=== PATIENT | female | born 1950 | race Caucasian/White ===

== ENCOUNTER → 2018-04-12 11:15 | Outpatient (CLI) | payer MEDICARE, SELFPAY ==
--- NOTE | 2018-04-12 11:18 | MRI_ITS ---
STUDY: MRI THORACIC SPINE WITHOUT CONTRAST REASON FOR EXAM: Female, 67 years old. Chronic thoracic pain to right side. TECHNIQUE: Standardized fat and water weighted pulse sequences were obtained in the sagittal and axial planes. COMPARISON: None. FINDINGS: Normal kyphosis of the thoracic spine. There is no substantial scoliosis. T1-2, T2-3, T3-4, T4-5, T5-6, T6-7, T7-8, T8-9, T9-10, T10-11, T11-12: Mild anterior wedging of the superior endplates of T5, T6, T9 and T11 vertebral bodies. There are presumably from remote injury. No thoracic extruded disc fragments. Normal central canal and bilateral intervertebral neural foramina. Normal visualized thoracic cord. Normal conus medullaris that terminates at the mid L1 vertebral body level. The soft tissue structures are unremarkable. MRI/Spine Thoracic (Routine) IMPRESSION: 1. No MRI evidence of thoracic extruded disc fragment or spinal stenosis. 2. Minimal anterior wedging of the superior endplates of T5, T6, T9 and T11 vertebral bodies are presumably from remote injury. 3. Normal thoracic spinal cord. Electronically Signed: Willie Parkinson MD at 15:02 EST , Service support ,
--- OUTSIDE RECORDS SUMMARY | 2018-06-05 17:10 | XMS RPT_ITS ---
:[address] [facility] Care Team Providers Name Role Phone Dr. Gracia Galaviz Admitting Unavailable Dr. Gracia Galaviz Attending Unavailable [place], Coretta October Attending Unavailable [place], Coretta October Admitting Unavailable Long[place]orf, Kamilah A Primary Care Unavailable [place], Coretta October Admitting Unavailable [place], Coretta October Attending Unavailable [place]orf, Kamilah A Primary Care Unavailable [place], Coretta October Attending Unavailable [place]orf, Kamilah A Primary Care Unavailable [place], Coretta October Admitting Unavailable [place], Coretta October Attending Unavailable [place], Coretta October Primary Care Unavailable [place], Coretta October Admitting Unavailable [place], Coretta October Attending Unavailable [place], Coretta October Primary Care Unavailable [place], Coretta October Admitting Unavailable [place], Coretta October Attending Unavailable [place], Coretta October Primary Care Unavailable Gracia Galaviz Admitting Unavailable Gracia Galaviz Attending Unavailable [place], Coretta October Referring Unavailable [place], Coretta October Primary Care Unavailable Ambreen Paredes Attending Unavailable Ambreen Paredes Referring Unavailable [place], Coretta October Primary Care Unavailable Gracia Galaviz Admitting Unavailable Gracia Galaviz Attending Unavailable [place], Coretta October Primary Care Unavailable Longsdorf, Kamilah A Attending Unavailable [place], Coretta October Primary Care Unavailable Longsdorf, Kamilah A Admitting Unavailable [place], Coretta October Primary Care Unavailable Durga Hinson Admitting Unavailable JoyaDurga Attending Unavailable Nicole, Kamilah A Admitting Unavailable NicoleKamilah A Attending Unavailable [place], Coretta October Primary Care Unavailable [place], Coretta October Attending Unavailable [place], Coretta October Primary Care Unavailable [place], Coretta October Admitting Unavailable [place], Coretta October Primary Care Unavailable [place], Coretta October Attending Unavailable [place], Coretta October Primary Care Unavailable [place], Coretta October Admitting Unavailable [place], Coretta MANAGER CUSTOM-C Attending Unavailable [place], Coretta MANAGER CUSTOM-C Referring Unavailable [place], Coretta MANAGER CUSTOM-C Primary Care Unavailable PROBLEMS PROBLEMS No Problem Records FoundPROCEDURES PROCEDURES No Procedure Records FoundRESULTS RESULTS SPINE THORACIC Observed: 04/12/2018 Status: F Source: [place] (ROUTINE) 11:18 AM [facility] REPOSITORY [facility] Imaging Services [address] [place] [id number] Spine Thoracic (Routine) MR#: [id number] Acct: [id number] Name: JOHNSON LAN Rep #: [id number] : 1950 F 67 From: Willie Parkinson MD PCP: OVIDIO Saucedo Status: REG CLI Study: Spine Thoracic (Routine) Date of Exam: 04/12/18 Exam# [id number] Ordering Dr: Coretta James STUDY: MRI THORACIC SPINE WITHOUT CONTRAST REASON FOR EXAM: Female, 67 years old. Chronic thoracic pain to right side. TECHNIQUE: Standardized fat and water weighted pulse sequences were obtained in the sagittal and axial planes. COMPARISON: None. FINDINGS: Normal kyphosis of the thoracic spine. There is no substantial scoliosis. T1-2, T2-3, T3-4, T4-5, T5-6, T6-7, T7-8, T8-9, T9-10, T10- 11, T11-12: Mild anterior wedging of the superior endplates of T5, T6, T9 and T11 vertebral bodies. There are presumably from remote injury. No thoracic extruded disc fragments. Normal central canal and bilateral intervertebral neural foramina. Normal visualized thoracic cord. Normal conus medullaris that terminates at the mid L1 vertebral body level. The soft tissue structures are unremarkable. MRI/Spine Thoracic (Routine) IMPRESSION: 1. No MRI evidence of thoracic extruded disc fragment or spinal stenosis. 2. Minimal anterior wedging of the superior endplates of T5, T6, T9 and T11 vertebral bodies are presumably from remote injury. 3. Normal thoracic spinal cord. Electronically Signed: Willie Parkinson MD at 15:02 EST , Service support , CC: OVIDIO James Metabolic Specialist: Signed US BREAST UNILATERAL Observed: 10/27/2017 Status: F Source: [facility] RT COMPLETE 8:32 AM [facility] REPOSITORY Exam Date/Time: 10/27/2017 09:07 EDT Reason for Exam: RUQ ABD PAIN RIGHT BREAST PAIN 06/09/17;Breast pain Report STUDY: US Breast Unilateral Rt Complete; 10/27/2017 9:07 am ACCESSION NUMBER(S): [id number] ORDERING CLINICIAN: Kamilah Rivera INDICATION: Breast pain. COMPARISON: None. FINDINGS: The entire breast was examined by ultrasound. No solid mass lesion is seen. There is no abnormal shadowing present. A cyst is present, at the 9 o'clock position 8 cm from the nipple, measuring 5 x 3 x 3 mm. No ductal dilatation is seen. The parenchyma is moderately echodense. IMPRESSION: No solid mass lesion. Cyst at the 9 o'clock position 8 cm from the nipple. BI-RADS CATEGORY: Category: 2 - Benign Finding. Recommendation: Normal Interval Follow-up, Over Age 40. Recall Interval: 12 Months. Breast Density: Heterogeneous. For any future breast imaging appointments, please call [phone] ([phone]). FINAL REPORT Dictated: 10/27/2017 10:51 am Pablo Estrada MD Signed (Electronic Signature): 10/27/2017 10:51 am Signed by: Pablo Estrada MD Technologist: ROBBY Assessment: BI-RADS Category 2-Benign finding Recommendation: Normal interval follow-up US ABDOMEN, LIMITED Observed: 10/27/2017 Status: F Source: [facility] 8:06 AM [facility] REPOSITORY Exam Date/Time: 10/27/2017 09:07 EDT Reason for Exam: RUQ ABD PAIN RIGHT BREAST PAIN ATTN:RUQ;RUQ Pain Report STUDY: US Abdomen, Limited; 10/27/2017 9:07 am INDICATION: 67 y/o F with RUQ Pain. COMPARISON: None. ACCESSION NUMBER(S): [id number] ORDERING CLINICIAN: Kamilah Rivera TECHNIQUE: Routine ultrasound of the right upper quadrant was performed. Static images were obtained for remote interpretation. FINDINGS: LIVER: Normal size. There is increased liver echogenicity. This, is most likely due to fatty liver. Coexistent fibrotic or inflammatory changes are not excluded. No gross masses within the limits of the study (particularly from attenuation of the posterior liver). BILE DUCTS: No intrahepatic or extrahepatic bile duct dilatation. Extrahepatic bile duct = 4 mm. GALLBLADDER: Normal. No stones, pericholecystic fluid, wall thickening, or localized tenderness. PANCREAS: Normal head and body. The pancreatic tail is obscured by bowel gas. RIGHT KIDNEY: Normal size, no hydronephrosis. A cyst is noted in the right kidney, which measures 1.8 x 1.08 x 1.5 cm. PERITONEUM: No upper abdominal ascites. IMPRESSION: Fatty infiltration of the liver. No evidence for cholelithiasis. Exam Date/Time: 10/27/2017 09:07 EDT Report Right renal cyst. FINAL REPORT Dictated: 10/27/2017 9:38 am Maday Bolden MD Signed (Electronic Signature): 10/27/2017 9:38 am Signed by: Maday Bolden MD Technologist: ROBBY CBC W/ AUTO DIFF Collected: 10/02/2017 Status: F Source: [facility] 11:15 PM [facility] REPOSITORY TYPE CODE TESTS RESULT OUT OF RANGE REFERENCE UNITS LAB [id number](L 3.6-11.0 E3/mcL OINC) Normal WBC 5.9 LAB [id number](L 3.90-5.40 E6/mcL OINC) Normal RBC 4.28 LAB [id number](L 12.0-16.0 G/DL OINC) Normal Hgb 12.8 LAB [id number](L 36.0-48.0 % OINC) Normal Hct 38.0 LAB [id number](L 11.5-14.5 % OINC) Normal RDW 14.3 LAB [id number](L 27.0-31.0 pg OINC) Normal MCH 30.0 LAB [id number](L 33.0-37.0 G/DL OINC) Normal MCHC 33.8 LAB [id number](L 78.0-100.0 fL OINC) Normal MCV 88.8 LAB [id number](L 7.4-11.0 fL OINC) Normal MPV 8.9 LAB [id number](L 130-400 E3/mcL OINC) Normal Platelet 153 Performed By: #### [id number] #### [place] [address] AUTO DIFF Collected: 10/02/2017 Status: F Source: [facility] 11:15 PM [facility] REPOSITORY Order Comment: Order Added by Discern Expert. TYPE CODE TESTS RESULT OUT OF RANGE REFERENCE UNITS LAB [id number](L 37.0-75.0 % OINC) Normal Neutro Auto 62.9 LAB [id number](L 20.0-55.0 % OINC) Normal Lymph Auto 25.9 LAB [id number](L 0.0-10.0 % OINC) Normal [place] Auto 6.7 LAB 31436613(L 0.0-11.0 % OINC) Normal Eos Auto 3.5 LAB [id number](L 0.0-2.0 % OINC) Normal Basophil Auto 1.0 LAB [id number](L 1.4-6.5 E3/mcL OINC) Normal Neutro 3.7 Absolute LAB [id number](L 1.2-3.4 E3/mcL OINC) Normal Lymph Absolute 1.5 LAB [id number](L 0.0-0.7 E3/mcL OINC) Normal [place] Absolute 0.4 LAB 01827601(L 0.0-0.7 E3/mcL OINC) Normal Eos Absolute 0.2 LAB [id number](L 0.0-0.2 E3/mcL OINC) Normal Basophil 0.1 Absolute Performed By: #### [id number] #### ANGIE [employer] [address] [place] [address] PT Collected: 10/02/2017 Status: F Source: [facility] 11:15 [facility] REPOSITORY TYPE CODE TESTS RESULT OUT OF RANGE REFERENCE UNITS LAB [id number](LO 1.0-1.2 INC) Normal INR 1.0 Result Comment: INR Recommended Therapeuptic Ranges: Prophylaxis/treatment of DVT and PE?2.0-3.0 Prevention of systemic embolism?.2.0-3.0 Mechanical prosthetic values?2.5-3.5 CRITICAL VALUES?.>4.0 LAB [id number](LOINC) 11.6-14.6 second(s) Normal 12.9 PT Performed By: #### [id number] #### ANGIE [facility] [employer] [address] [place] [address] PTT Collected: 10/02/2017 Status: F Source: [facility] 11:15 [facility] REPOSITORY TYPE CODE TESTS RESULT OUT OF RANGE REFERENCE UNITS LAB [id number](LO 23.2-36.4 second(s) INC) Normal PTT 25.6 Performed By: #### [id number] #### ANGIE [facility] [employer] [address] [place] [address] PTT CONTROL RATIO Collected: 10/02/2017 Status: F Source: [facility] 11:15 [facility] REPOSITORY Order Comment: Order added by Discern Expert. TYPE CODE TESTS RESULT OUT OF RANGE REFERENCE UNITS LAB [id number](LO 0.8-1.2 ratio INC) Normal PTT Ratio 0.9 Performed By: #### [id number] #### ANGIE [facility] [employer] [address] [place] [address] TROPONIN-I Collected: 10/02/2017 Status: F Source: [facility] 11:15 PM [facility] REPOSITORY TYPE CODE TESTS RESULT OUT OF RANGE REFERENCE UNITS LAB [id number](LO .00-.03 ng/mL INC) Normal <.01 Troponin-I Performed By: #### [id number] #### ANGIE [place] [id number] [facility] Collected: 10/02/2017 Status: F Source: [facility] 11:15 PM [facility] REPOSITORY TYPE CODE TESTS RESULT OUT OF RANGE REFERENCE UNITS LAB [id number](L 70-99 mg/dL OINC) High Glucose Lvl 167 LAB [id number](L 8.4-10.2 mg/dL OINC) Calcium Normal Lvl 8.9 LAB [id number](L 136-145 mEq/L OINC) Low Sodium Lvl 135 LAB [id number](L 3.5-5.1 mEq/L OINC) Normal Potassium Lvl 3.6 LAB [id number](L 98-107 mEq/L OINC) Chloride Normal 104 LAB [id number](L 24.0-30.0 mEq/L OINC) Low CO2 22.3 LAB [id number](L 7-18 mg/dL OINC) BUN Normal 13 LAB [id number](LO 0.6-1.3 mg/dL INC) Normal Creatinine 0.8 LAB 30603101(L 42-121 Int._Unit/ OINC) L Alk Phos Normal 68 LAB [id number](L 0.2-1.0 mg/dL OINC) Bili Normal Total 0.4 LAB [id number](L 3.2-5.0 G/DL OINC) Albumin Normal Lvl 4.1 LAB [id number](L 6.4-8.3 G/DL OINC) Total Normal Protein 7.0 LAB [id number](L 10-40 Int._Unit/ OINC) High L ALT 50 LAB [id number](L 10-42 Int._Unit/ OINC) High L AST 52 LAB [id number](L 5.4-30.0 ratio OINC) Normal BUN/Creat Ratio 16.2 LAB [id number](L 2.0-4.0 G/DL OINC) Globulin Normal 2.9 LAB 61471639(L 1.1-1.9 ratio OINC) A/G Normal Ratio 1.4 Performed By: #### [id number] #### ANGIE [employer] [address] [place] [address] EGFR Collected: 10/02/2017 Status: F Source: [place] 11:15 PM [facility] REPOSITORY Order Comment: Order added by Discern Expert. TYPE CODE TESTS RESULT OUT OF RANGE REFERENCE UNITS LAB [id number](LO mL/min/1.73 INC) m2 Normal eGFR >60 LAB 66022648(LO mL/min/1.73 INC) m2 Normal eGFR AA >60 Performed By: #### [id number] #### ANGIE [facility] [address] [place] [address] CLINIC NOTE - HEME Observed: 08/04/2017 Status: COMPLETED Source: [facility] 8:36 AM [facility] Patient Visit Information: Visit Type: Consult History of Present Illness: Chief Complaint: iron deficiency anemia Interval History: Johnson Lan is a 67 y.o. who presents with iron deficiency anemia. She is status post gastric bypass surgery 8 years prior. She reports a loss of 70 lbs but has gained back 20 lbs. She reports herself as an emotional eater. She reports stuffing her stomach and having subsequent pain daily. She has been lost to follow-up with regards to her gastric bypass surgery. She takes 1 over the counter iron tablet daily. Labs dated 07/15 2017 show wbc 5.1, hgb 12.6, mcv 89.2, platelets 159. Iron 47, transferrin 321, TIBC 449 and iron saturation low at 10. On 02/13 2017 labs showed wbc 5.7, hgb 12.5, mcv 86.1, platelets 171, iron 44, transferrin 325, TIBC 455 and low iron saturation at 10. Review of Systems: ? Constitutional NEGATIVE: Fever, Chills, Anorexia, Weight Loss, Malaise Comments fatigue ? Eyes NEGATIVE: Blurry Vision, Drainage, Diploplia, Redness, Vision Loss/ Change ? ENMT NEGATIVE: Nasal Discharge, Nasal Congestion, Ear Pain, Mouth Pain, Throat Pain ? Respiratory POSITIVE: Wheezing NEGATIVE: Dry Cough, Productive Cough, Hemoptysis, Shortness of Breath ? Cardiology NEGATIVE: Chest Pain, Dyspnea on Exertion, Orthopnea, Palpitations, Syncope ? Gastrointestinal NEGATIVE: Abdominal Pain, Constipation, Diarrhea, Nausea, Vomiting ? Genitourinary NEGATIVE: Discharge, Dysuria, Flank Pain, Frequency, Hematuria ? Musculoskeletal POSITIVE: Pain, Stiffness NEGATIVE: Decreased ROM, Swelling, Weakness ? Neurological NEGATIVE: Dizziness, Confusion, Headache, Seizures, Syncope ? Psychiatric POSITIVE: Mood Changes, Anxiety NEGATIVE: Hallucinations, Sleep Changes, Suicidal Ideas ? Skin NEGATIVE: Mass, Pain, Pruritus, Rash, Ulcer ? Endocrine NEGATIVE: Heat Intolerance, Cold Intolerance, Sweat, Polyuria, Thirst ? Hematologic/Lymph POSITIVE: Bruising NEGATIVE: Anemia, Easy Bleeding, Night Sweats, Petechiae ? Allergic/Immunologic NEGATIVE: Anaphylaxis, Itchy/ Teary Eyes, Itching, Sneezing, Swelling ? Breast NEGATIVE: Pain, Mass, Discharge, Nipple Itching, Gynecomastia Allergies and Intolerances: Allergies: penicillin: Drug, Rash, Active Outpatient Medication Profile: * Patient Currently Takes Medications as of 04-Aug-2017 07:57 documented in Structured Notes celecoxib 100 mg oral capsule: Last Dose Taken: , 1 cap(s) orally 2 times a day cloNIDine 0.2 mg/12 hr oral tablet, extended release: Last Dose Taken: , 2 tab(s) orally once a day (in the evening) pantoprazole 40 mg oral delayed release tablet: Last Dose Taken: , 1 tab(s) orally once a day amlodipine-valsartan 5 mg-160 mg oral tablet: Last Dose Taken: , 1 tab(s) orally once a day venlafaxine 75 mg oral capsule, extended release: 1 cap(s) orally once a day Slow Release Iron (as elemental iron) 45 mg oral tablet, extended release: 1 tab(s) orally once a day levalbuterol 45 mcg/inh inhalation aerosol: Last Dose Taken: , 2 puff(s) inhaled every 4 hours, As Needed Medical History: Skin cancer, basal cell: Status: Active Wheezing: Status: Active Depression: Status: Active GERD (gastroesophageal reflux disease): Status: Active Hypertension: Status: Active Fibromyalgia: Status: Active Iron deficiency anemia: Status: Active Surg History: Status post total knee replacement: Status: Active Gastric bypass status for obesity: Status: Active Family History: Cerebral hemorrhage: Status: Active, Relationship to Patient: Father (Age at Diagnosis: Age Unknown) Congestive heart failure: Status: Active, Relationship to Patient: Mother (Age at Diagnosis: Age Unknown) Family History: Congestive heart failure (Mother Age Unknown) Cerebral hemorrhage (Father Age Unknown) Social History: Smoking Status: never smoker Tobacco Use: denies Alcohol Use: occasionally, 3 drinks / week Drug Use: denies Vitals and Measurements: Vitals: Temp: 36.6 HR: 83 RR: 20 BP: 119/77 SPO2%: 95 Measurements: HT(cm): 165 WT(kg): 103.6 BSA: 2.17 BMI: 38 Physical Exam: Constitutional: Well developed, awake/alert/oriented x3, no distress Eyes: PERRL, EOMI, clear sclera ENMT: mucous membranes moist, no apparent injury, no lesions seen Head/Neck: Neck supple, no apparent injury Respiratory/Thorax: Patent airways, CTAB, normal breath sounds with good chest expansion, thorax symmetric Cardiovascular: Regular, rate and rhythm Gastrointestinal: Nondistended, soft, non-tender, no rebound tenderness or guarding, no masses palpable, no organomegaly Musculoskeletal: ROM intact, normal strength Extremities: normal extremities, no edema Neurological: alert and oriented x3, intact motor, normal strength Lymphatic: No significant lymphadenopathy Psychological: Appropriate mood and behavior Skin: Warm and dry Assessment and Plan: Assessment and Plan: Assessment: Johnson Lan is a 67 y.o. who presents with concern for iron deficiency anemia. She is status post gastric bypass surgery 8 years prior. I did explain the concern for malabsorption of iron. She reports taking over the counter iron supplement. Transferrin saturation is low. I did offer infusional iron therapy with her history of gastric bypass. At this time she refuses. She would like to increase the dosing of her current iron regimen. Plan: Return to clinic in 4 weeks with cbc/diff, iron, TIBC and ferritin prior to visit. Continue oral iron twice daily. Patient Instructions: Instructions: Return to clinic in 4 weeks with cbc/diff, iron, TIBC and ferritin prior to visit. Continue oral iron twice daily. Note Recipients: C[facility] [phone] Select Yes when ready to send to Provider(s) Listed Above: Note sent to providers named above Electronic Signatures: Gracia Galaviz) (Signed 07-Aug-2017 08:34) Authored: Patient Visit Information, History of Present Illness, Review of Systems, Allergies and Outpatient Medication Profile, Problem List, Social History, Performance Assessments, Vitals and Measurements, Physical Exam, Assessment and Plan, Patient Instructions, To Send Document via Auto Fax Last Updated: 07-Aug-2017 08:34 by Gracia Galaviz) CLINIC NOTE - Observed: 08/04/2017 Status: UNK Source: [facility] 7:44 AM [facility] Patient Visit Information: ? Visit Type New Visit ? Patient States Here to see Dr Galaviz for Iron Deficiency ? Source of Information patient Admission Information: ? Admission Since Last Visit No Vital Signs: ? Temp (degrees C) 36.6 degrees C ? Temperature oral ? Heart Rate (beats/min) 83 beats per minute ? Respiration (breaths/min) 20 breath per minute ? BP Systolic (mm Hg) 119 mmHg ? BP Diastolic (mm Hg) 77 mmHg ? BP Mean (mm Hg) 91 mmHg ? Height in cm 165 centimeter(s) ? Height Method measured ? Height standing ? Weight in kg 103.6 kilogram(s) ? Weight Method standing scale ? BMI (kg/m2) 38 ? BSA (m2) 2.17 ? SpO2 (%) 95 % Pain Screening: ? Patient States Pain no (0) ? 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 Patient has declined Allergies: penicillin: Drug, Rash, Active Outpatient Medication Profile: * Patient Currently Takes Medications as of 04-Aug-2017 07:57 documented in Structured Notes celecoxib 100 mg oral capsule: Last Dose Taken: , 1 cap(s) orally 2 times a day cloNIDine 0.2 mg/12 hr oral tablet, extended release: Last Dose Taken: , 2 tab(s) orally once a day (in the evening) pantoprazole 40 mg oral delayed release tablet: Last Dose Taken: , 1 tab(s) orally once a day amlodipine-valsartan 5 mg-160 mg oral tablet: Last Dose Taken: , 1 tab(s) orally once a day venlafaxine 75 mg oral capsule, extended release: 1 cap(s) orally once a day Slow Release Iron (as elemental iron) 45 mg oral tablet, extended release: 1 tab(s) orally once a day levalbuterol 45 mcg/inh inhalation aerosol: Last Dose Taken: , 2 puff(s) inhaled every 4 hours, As Needed Each Visit: Have you fallen in the last 6 months? no Do you have a fear of falling? no Is the patient using an assistive device no Do you feel you need assistance? no Are there cultural/spiritual/scientologist practices/values/needs important for us to know during your visit today no Annual: Declaration of Mental Health Treatment no Healthcare POA no Are you or have you been threatened or abused physically,emotionally or sexually abused by anyone no Do you feel UNSAFE going back to the place you are living no During the past two weeks, have you felt down, depressed or hopeless no Have you had thoughts of harming anyone else no Have you had thoughts of harming yourself no During the past two weeks, have you felt little interest or pleasure doing things no How many times in the past year have you had 4 or more drinks within 24 hours 0 How many times in past year have you used recreational or prescription drugs for non-medical reasons 0 In the past month, was there any day when you or anyone in your family went hungry because you didn't have enough food no Primary Language Polish Living Will no Living Will Forms declines more information Healthcare POA Forms declined more information Mental Health Forms declines more information Electronic Signatures: Em Mg (ASST HEAD N MGR) (Signed 04-Aug-2017 07:58) Authored: Patient Visit Information, Vital Signs, Chocolate Production Machine Operator, Allergies, Outpatient Medication Profile, Adult Admission Risk Screen Last Updated: 04-Aug-2017 07:58 by Em Mg (ASST HEAD N MGR) CBC W/ AUTO DIFF Collected: 07/15/2017 Status: F Source: [facility] 10:41 AM [facility] REPOSITORY TYPE CODE TESTS RESULT OUT OF RANGE REFERENCE UNITS LAB [id number](L 3.6-11.0 E3/mcL OINC) Normal WBC 5.1 LAB [id number](L 3.90-5.40 E6/mcL OINC) Normal RBC 4.24 LAB [id number](L 12.0-16.0 G/DL OINC) Normal Hgb 12.6 LAB [id number](L 36.0-48.0 % OINC) Normal Hct 37.8 LAB [id number](L 11.5-14.5 % OINC) Normal RDW 13.9 LAB [id number](L 27.0-31.0 pg OINC) Normal MCH 29.8 LAB 46624983(L 33.0-37.0 G/DL OINC) Normal MCHC 33.4 LAB [id number](L 78.0-100.0 fL OINC) Normal MCV 89.2 LAB 01630625(L 7.4-11.0 fL OINC) Normal MPV 8.8 LAB [id number](L 130-400 E3/mcL OINC) Normal Platelet 159 Performed By: #### [id number] #### ANGIE [facility] [place] [address] AUTO DIFF Collected: 07/15/2017 Status: F Source: [facility] 10:41 AM [facility] REPOSITORY Order Comment: Order Added by Discern Expert. TYPE CODE TESTS RESULT OUT OF RANGE REFERENCE UNITS LAB [id number](L 37.0-75.0 % OINC) Normal Neutro Auto 59.0 LAB [id number](L 20.0-55.0 % OINC) Normal Lymph Auto 26.7 LAB 75016019(L 0.0-10.0 % OINC) Normal [place] Auto 9.4 LAB 87109444(L 0.0-11.0 % OINC) Normal Eos Auto 4.1 LAB [id number](L 0.0-2.0 % OINC) Normal Basophil Auto 0.8 LAB 65679861(L 1.4-6.5 E3/mcL OINC) Normal Neutro 3.0 Absolute LAB 64162937(L 1.2-3.4 E3/mcL OINC) Normal Lymph Absolute 1.4 LAB 29573507(L 0.0-0.7 E3/mcL OINC) Normal [place] Absolute 0.5 LAB 68788646(L 0.0-0.7 E3/mcL OINC) Normal Eos Absolute 0.2 LAB 36075014(L 0.0-0.2 E3/mcL OINC) Normal Basophil 0.0 Absolute Performed By: #### [id number] #### ANGIE [facility] [place] [address] IRON TESTS Collected: 07/15/2017 Status: F Source: [facility] 10:41 AM [facility] REPOSITORY TYPE CODE TESTS RESULT OUT OF RANGE REFERENCE UNITS LAB [id number](L 35-155 microgram/ OINC) dL Iron Normal 47 LAB [id number](L 180-382 mg/dL OINC) Transferrin Normal 321 LAB [id number](L 11-46 OINC) Low Iron Sat 10 LAB [id number](L >=250 microgram/ OINC) dL TIBC Normal 449 Performed By: #### [id number] #### ANGIE [employer] [facility] [place] [address] SED RATE AUTOMATED Collected: 07/15/2017 Status: F Source: [facility] 10:41 AM [facility] REPOSITORY TYPE CODE TESTS RESULT OUT OF RANGE REFERENCE UNITS LAB [id number](L mm/hr OINC) Sed Normal Rate Automated 11 Result Comment: AGE-SPECIFIC REFERENCE RANGES FOR SEDIMENTATION RATE AUTOMATED REFERENCE RANGE - MM/HR AGE MEN WOMEN 0-2 0-2 - PUBERTY 3-13 3-13 PUBERTY - 50 YRS 0-15 0-20 > 50 YRS 0-20 0-30 Performed By: #### [id number] #### ANGIE Hematology Manual Subsection [facility] [place] [address] FERRITIN Collected: 07/15/2017 Status: F Source: [facility] 10:41 AM [facility] TYPE CODE TESTS RESULT OUT OF REFERENCE UNITS RANGE LAB [id number](LO 11.0-306.8 ng/mL INC) Low Ferritin Lvl 7.2 Performed By: #### [id number] #### ANGIE [employer] [address] [place] [address] BD BONE DENSITY DEXA Observed: 06/09/2017 Status: F Source: [facility] 10:44 AM [facility] REPOSITORY Exam Date/Time: 06/09/2017 10:54 EST Reason for Exam: SCREENING MENOPAUSAL;Menopausal Report BD Bone Density DEXA, 06/09/2017 10:44 AM CLINICAL STATEMENT: Postmenopausal screening. TECHNIQUE: DEXA scan was performed of the lumbar spine and left hip. FINDINGS: The bone mineral density of the lumbar spine from levels L1-L4 is 1.119 g/sq cm corresponding to a T-score of 0.7. This is consistent with normal bone mineral density by WHO criteria. The bone mineral density of the total left hip is 0.896 g/sq cm corresponding to a T-score of -0.4. This is consistent with normal bone mineral density by WHO criteria. The bone mineral density of the left femoral neck is 0.731 g/sq cm corresponding to a T-score of -1.1. This is consistent with osteopenia by WHO criteria. IMPRESSION: Osteopenia by WHO criteria. Ten-year fracture risk as determined by WHO fracture assessment tool is 13% for major osteoporotic fracture and 1.2% for hip fracture. FINAL REPORT Dictated: 06/09/2017 5:47 pm Guille Ray MD Signed (Electronic Signature): 06/09/2017 5:47 pm Signed by: Guille Ray MD Technologist: OLU TSAI MAMM SCREEN W/CAD Observed: 06/09/2017 Status: F Source: [facility] IF PERFORMED BILAT 10:32 AM [facility] REPOSITORY Exam Date/Time: 06/09/2017 10:44 EST Reason for Exam: SCREENING MENOPAUSAL;Screening Report MA Mamm Screen w/CAD if performed bilat, 06/09/2017 10:32 AM. CLINICAL STATEMENT: Screening. COMPARISON: 04/16/2016, 01/22/2015. TECHNIQUE: Standard MLO and CC projections of the right and left breast were obtained on a digital system. Computer-assisted detection was used. FINDINGS: Breast tissue composition: Heterogeneously dense, which may obscure small masses. A scar marker is noted in the left breast. Vascular and other benign-appearing calcifications are present, similar to prior. No dominant mass, suspicious microcalcifications, or architectural distortion. CONCLUSION: BI-RADS 2 - Benign, no evidence of malignancy. Normal interval followup is recommended in 12 months. OVERALL ASSESSMENT- BENIGN A letter of notification will be sent to the patient regarding the results. Assessment / Recommendation: 2-1 Normal interval follow-up Breast density: Heterogeneously Dense Recall interval: 012 months FINAL REPORT Dictated: 06/09/2017 5:47 pm Guille Ray MD Signed (Electronic Signature): 06/09/2017 5:47 pm Signed by: Guille Ray MD Technologist: ROSALIND Assessment: BI-RADS Category 2-Benign finding Recommendation: Normal interval follow-up IG PAP [id number] Collected: 05/26/2017 Status: F Source: [facility] 12:53 PM [facility] REPOSITORY TYPE CODE TESTS RESULT OUT OF RANGE REFERENCE UNITS LAB [id number]( INC) Normal See Ref Lab Diagnosis: Report Performed By: #### [id number] #### [place] [address] PATHOLOGY ([facility]) Observed: 05/25/2017 Status: F Source: [facility] 12:00 AM REPOSITORY FINAL GYNECOLOGIC CYTOLOGY REPORT [id number] SPECIMEN ADEQUACY Unsatisfactory for Evaluation. Specimen is processed and examined, but unsatisfactory for evaluation of epithelial abnormality due to: Sample is scanty/obscurred by lubricant GENERAL CATEGORIZATION Unsatisfactory for evaluation. COMMENT Knifeman screening was performed at [facility], [address] [address] High Risk HPV was ordered and performed at [facility] Laboratory. Results are reported below in this report. A negative result is a normal result. A positive result is an abnormal result. HPV HIGH RISK NEGATIVE: The results of this test indicate the patient's specimen is NEGATIVE for the following high-risk HPV types: 16/18/31/33/35/39/45/51/52/56/58/59/66/68. RELATED LABORATORY RESULTS Ordered by: [email or web address] Ord Date: 05/25/2017 Ord Time: 20:28 Test Collected Result Abnormal Range Units Specimen Name D&T Type HPV Negative NA MSC RNA, 8 High Risk The HPV test detects E6/E7 viral messenger RNA (mRNA) high- risk HPV genotypes 16,18,31,33,35,39,45,51,55,58,59,66, and 68 which are associated with cervical cancer and its precursor lesions. However, cross-reactions with other genotypes may occur. Results should be correlated with cytologic and histologic findings. Sensitivity may be affected by cellularity of specimen. CLINICAL HISTORY Comment: No LMP provided. SPECIMEN (A) SCREENING CERVICAL/ENDOCERVICAL LIQUID-BASED PAP Performed at [facility], [address] [place] [address] Screened by: CRIS VARELA [employer]her Signed Out by: VOLODYMYR CROWE [employer]her Reported: 06/02/2017 Performed By: #### RUNNING RIGGER #### [facility] [address] [place] [address] ALLERGIES ALLERGIES DATE TYPE / CODE NAME / CODE REACTION SEVERITY SOURCE 11/15/2015 Drug venlafaxine Nausea Unknown Audrey Allergy/416 HCl/[id number](RXN Community 392487([facility]) [facility] ED CT) Repository 11/15/2015 Drug Penicillins/Z90239 Rash Unknown [place] Allergy/416 0476(RXNORM) Community 467739([facility] ED CT) Repository Drug/577118 Milk to drink Nondenominational 003([facility] CT) System Repository Drug/829928 penicillin G Rash Nondenominational 003([facility] benzathine [facility] CT) System Repository Drug/082201 Milk Products gi upset Nondenominational 003([facility] CT) System Repository Food/748988 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 [facility] CT) System Repository Drug/683728 Effexor NAUSEA/VOMITING Nondenominational 003([facility] CT) System Repository ENCOUNTERS ENCOUNTERS ADMIT/DISCHARGE ACCOUNT NUMBER ADMITTING ENCOUNTER LOCATION SOURCE CLASS 04/12/2018 [id number] [facility] ding:MRI Repository 04/06/2018/04/06/[id number] ding:[place] Repository nt MedicRoom: Room 2 02/23/2018 [id number] [facility] ding:[place] Repository nt Medic 12/02/2017/12/03/[id number] ding:[place] Repository nt MedicRoom: Room 2 10/27/2017/10/28/[id number] ding:[facility] Health System Repository 10/27/2017 [id number] Ambulatory [address] [place] [address] Repository 10/06/2017/10/07/[id number] ding:[place] Repository nt MedicRoom: Room 3 10/02/2017/10/04/19 [id number] Durga Hinson [address] ding:[facility] System EDRoom: WR Repository 10/02/2017 [id number] Ambulatory [address] [place] [address] Repository 09/04/2017/09/05/[id number] ding:CD:1320 Health System 318569 Repository 08/04/2017/08/05/19 [id number] Ambulatory [address] ding:[place] Repository nt Medic 08/04/2017/08/08/19 [id number] Guillaume [facility] [address] [facility] ding:CD:1320 [facility] 607624 Repository 08/04/[id number] Guillaume Ambulatory [address] [place] [address] Repository 08/03/2017/10/23/19 [id number] [facility]ominational 13 uilding:[facility] Repository 07/15/2017/07/16/[id number] [place], Ambulatory [address] ding:[facility] System Repository 07/15/2017/07/16/19 [id number] [place], Ambulatory [address] ding:[place] Repository nt MedicRoom: Room 2 06/09/2017/06/09/19 [id number] [place], Ambulatory [address] ding:[facility] System Repository 05/25/2017/05/25/19 [id number] [place], Ambulatory [address] ding:[place] Repository nt MedicRoom: Room 2 05/25/2017/05/25/[id number] [place], Ambulatory [address] ding:[facility] System Repository PAYERS PAYERS ENCOUNTER GUARANTOR PAYER SUBSCRIBER SOURCE 04/12/2018 JOHNSON LAN1004 Primary JOHNSON GUERRERO: Audrey DEER [place] [id number] [address]Nhr: MEDICAREPolicy Repository Number: ) [id number] Date: [facility] [address]ZF: 04/12/2018 Secondary JOHNSON TYSONYLDOB: Audrey Insurance:[facility] PACKAGE [id number] PLANPolicy Number: Hospital [id number] Repository Date:2018-04-07 04/12/2018 Tertiary NOT GIVENUNK [place] Insurance:SELF PAY Community [facility] Number: Effective Repository Date:2018-04-07 04/06/2018 JOHNSON LANB: Primary JOHNSON TYSONYLDOB: Nondenominational Insurance:1500 [id number] [facility] SECURECARE O 4 DEER System [place] PLANPolic Number: [place] Repository [address]Qfj: Effective [address]Utp: Date:2018-04-05 - (HP) [id number] (HP)Tel: (000) Name:CD:[id number] 000-0000 (WP) 0 [place] [address]TP: 02/23/2018 JOHNSON LANB: Primary JOHNSON LANDOB: Nondenominational Insurance:1500 [id number] [facility] DEER System [place] PLANPolicy Number: [place] Repository [address]Siq: Effective [address]Ekc: Date:2018-02-23 (HP) [id number] (HP)Tel: (000) Name:CD:[id number] 000-0000 (WP) 0 [place] [address]XI: 12/02/2017 JOHNSON LANB: Primary JOHNSON TYSONYLDOB: Nondenominational Insurance:1500 [id number] [facility] DEER SECURECARE O 4 DEER System [place] PLANPolicy Number: [place] Repository [address]Nil: Effective [address]Qfh: Date:2017-12-02 - (HP) [id number] (HP)Tel: (000) Name:CD:[id number] 000-0000 (WP) [address] [place] [address]WZ: 10/27/2017 JOHNSON GUERRERO: Primary JOHNSON SUB: Nondenominational Insurance:COMMERCIAL [id number] [address] Number: Effective [place] Repository [address]Jdo: Date:2017-10-23 - [address]Feo: [id number] (HP) Name:CD:[id number] ()Tel: (000) [facility] 000-0000 () W [address]FN: 10/27/2017 JOHNSON GUERRERO: Primary Insurance:The JOHNSON GUERRERO: [employer] [id number] Hospitals DEER SecureCare Medicare 4 DE[place] Repository [place] Advantage [place], [place] [id number]: Number: [id number]: [id number] (HP) Date:Plan () Name:[address] [address]VI: 10/06/2017 JOHNSON GUERRERO: Primary JOHNSON GUERRERO: Nondenominational Insurance:1500 [id number] [address] PLANPolic Number: [place] Repository [address]Ouw: Effective [address]Upf: Date:2017-10-06 (HP) [id number] (HP)Tel: (000) Name:CD:[id number] 000-0000 (WP) [address] [place] [address]JU: 10/02/2017 JOHNSON SUB: Primary JOHNSON C HEYLDOB: Nondenominational Insurance:MEDICARE [id number] [address] System [place] Number: [place] Repository [address]Vnq: Date:2017-10-02 [address]Lym: [id number] (HP) Name:CD:[id number] ()Tel: (000) MAIN STSECURE 000-0000 (WP) [place], [place] [address]LS: 09/04/2017 JOHNSON TYSONYLDOB: Primary JOHNSON C HEYLDOB: Nondenominational Insurance:COMMERCIAL [id number] [address] System [place] Number: Effective [place] Repository [id number]: Date:2017-08-04 [id number]: [id number] (HP) Name:CD:[id number] ()Tel: (000) [address], 000-0000 (WP) [place] [address]JN: 08/04/2017 JOHNSON Sanam HEYLDOB: Primary JOHNSON C HEYLDOB: Nondenominational Insurance:MEDICARE [id number] [address] System [place] Number: Effective [place] Repository [id number]: Date:2017-06-10 [id number]: [id number] (HP) Name:CD:[id number] ()Tel: (000) [address] ESECURE 000-0000 (WP) [place] [address]TY: 08/04/2017 JOHNSON GUERRERO: Primary JOHNSON GUERRERO: Nondenominational Insurance:MEDICARE [id number] [facility] [address] [place] System [place] Number: Effective [place] Repository [id number]: Date:2017-08-04 [id number]: [id number] (HP) Name:CD:[id number] ()Tel: (000) [place], [place] 000-0000 (WP) [address]GX: 08/04/2017 JOHNSON GUERRERO: Primary Insurance:The JOHNSON GUERRERO: [place] [place] [facility] [id number] Hospitals DEER SecureCare Medicare 4 [place], [place] [address]Mll: (330) Number: [id number]: (HP) [id number] [phone] (HP) Date:Plan Name:[address] [address]GX: 08/03/2017 JOHNSON GUERRERO: Primary JOHNSON GUERRERO: Nondenominational Insurance:[facility] [id number] [facility] Number: [address] [place] System [place] Effective [place] Repository [id number]: Date:2012-09-29 [id number]: [id number] (HP) Name:CD:[id number] (HP)Tel: (251) [address] [place] [phone] (WP) [address]AE: 07/15/2017 JOHNSON SUB: Primary JOHNSON SUB: Nondenominational Insurance:MEDICARE [id number] [address] System [place] Number: Effective [place] Repository [id number]: Date:2017-07-15 - [id number]: [id number] (HP) Name:CD:[id number] (HP)Tel: (000) [facility] 000-0000 (WP) [place] [address]KR: 07/15/2017 JOHNSON SUB: Primary JOHNSON SUB: Nondenominational Insurance:[facility] [id number] [address] System [place] PLANPolicy Number: [place] Repository [id number]: Effective [id number]: Date:2017-07-15 - (HP) [id number] (HP)Tel: (000) Name:CD:[id number] 000-0000 (WP) [address] [place] [address]QP: 06/09/2017 JOHNSON SUB: Primary JOHNSON SUB: Nondenominational Insurance:MEDICARE [id number] [address] System [place] Number: Effective [place] Repository [id number]: Date:2017-05-25 - [id number]: [id number] (HP) Name:CD:[id number] ()Tel: (000) [address] ESECURE 000-0000 (WP) [place] [address]KB: 05/25/2017 JOHNSON GUERRERO: Primary JOHNSON SUB: Nondenominational Insurance:1500 [id number] [address] [address] DE[place] System [place] PLANPolic Number: [place] Repository [id number]: Effective [id number]: Date:2017-02-17 - (HP) 0049-44-85Jpew (HP)Tel: (000) Name:CD:[id number] 000-0000 (WP) [address] [place] [address]HQ: 05/25/2017 JOHNSON GUERRERO: Primary JOHNSON SUB: Nondenominational Insurance:MEDICARE [id number] [address] System [place] Number: Effective [place] Repository [id number]: Date:2017-05-26 - [id number]: [id number] (HP) Name:CD:[id number] (HP)Tel: (000) [address] ESECURE 000-0000 (WP) [place] [address]ZW:
== END ==
PROVIDERS: Family Provider Nurse Practitioner Family; PCP Nurse Practitioner Family; Referring Provider Nurse Practitioner Family; Visit Provider Nurse Practitioner Family
DX: M54.6 Pain in thoracic spine (principal)
CPT/HCPCS: 72146

== ENCOUNTER → 2018-07-20 14:06 | Outpatient (CLI) | payer MEDICARE, SELFPAY ==
[2015-11-16 10:05] VITALS: BMI 35.7
--- NOTE | 2018-07-20 14:09 | RAD_ITS ---
STUDY: X-RAY - ABDOMEN/PELVIS REASON FOR EXAM: Female, 68 years old. Abdominal cramping, history of gastric bypass. TECHNIQUE: KUB COMPARISON: None. FINDINGS: Surgical clips in epigastrium. Surgical clips in the left lower quadrant. Moderate stool burden of large bowel scattered gas. Scattered gas within nondilated small bowel. Unremarkable pattern. No significant organomegaly is suspected. Lung bases clear without cardiomegaly. Low lumbar spondylosis. RAD/Abdomen Single View IMPRESSION: Unremarkable bowel pattern. No acute intra-abdominal process is apparent. Electronically Signed: Denys Stovall MD at 19:25 EDT Tel , Service support ,
== END ==
PROVIDERS: Family Provider Nurse Practitioner Family; PCP Nurse Practitioner Family; Referring Provider Urology; Visit Provider Urology
DX: Z87.442 Personal history of urinary calculi (principal)
CPT/HCPCS: 74018

== ENCOUNTER → 2020-01-31 14:56 | Outpatient (CLI) | payer MEDICARE, SELFPAY ==
--- NOTE | 2020-01-31 15:02 | CT_ITS ---
HISTORY: BILATERAL PELVIC PAIN. HX OF KIDNEY STONES TUBAL GASTRIC BYPASS. TECHNIQUE: Helically acquired images were obtained of the abdomen and pelvis without oral or IV contrast. A radiation dose optimization technique was used for this scan. COMPARISON: X-rays of the abdomen from July 20, 2018 FINDINGS: # of images incl. paperwork: 518 LUNG BASES: Pulmonary hyperexpansion. Minimal bronchiectasis. Trace basilar scarring. CT abdomen: Some degenerative disc disease with facet arthropathy The gallbladder remains. Liver, spleen, pancreas, and adrenal glands are normal. The patient has had gastric bypass surgery. Nonobstructing right nephrolith. No hydronephrosis. Mild renal atrophy.. The aorta is normal. There is no intra-or extrahepatic biliary ductal dilatation. CT pelvis: No ascites is present. The uterus and ovaries are atrophic. The appendix is normal. Series 2 image 79. The bladder is decompressed. The patient has a mobile cecum. It extends up into the right upper quadrant, above the umbilicus. Above the umbilicus there is a midline small hernia containing only fat measuring about [address]/Abdomen/Pelvis without Cont IMPRESSION: Gastric bypass. No bowel obstruction. Distended gallbladder. Individualized dose optimization techniques were used for this CT. at 5534 Reported and signed by: Lavon Dickerson MD Electronically Signed: Lavon Dickerson MD at 4:44 EDT Tel , Service support ,
== END ==
PROVIDERS: PCP Nurse Practitioner Family; Referring Provider Nurse Practitioner Adult Health; Visit Provider Nurse Practitioner Adult Health
DX: R10.9 Unspecified abdominal pain (principal); N20.0 Calculus of kidney
CPT/HCPCS: 74176